=== PATIENT | female | born 1970 | race Caucasian/White ===

== ENCOUNTER → 2021-09-01 10:53 | Outpatient (CLI) | payer BC, SELFPAY ==
--- NOTE | ~2021-09-01 | XR_ITS ---
EXAMINATION: XR barium swallow DATE: 09/01/2021 12:02 INDICATION: Cough TECHNIQUE: The patient drank thick barium, gas-producing crystals, and thin barium. Fluoroscopic spot radiographs of the hypopharynx and esophagus were obtained. A total of 1452 images were recorded. Fl uoroscopy exposure time was 2.1 minutes. Total DAP was 2.39 mGycm^2 COMPARISON: None. FINDINGS: The pharynx is symmetric and without evidence of mass lesion or mucosal irregularity. The e sophagus is normal without mass or stricture. Esophageal motility is normal. There is no hiatal herni a. There was no gastroesophageal reflux with provocative maneuvers. IMPRESSION: 1. Normal esophagram. Reviewed, dictated and finalized at location B. IMPRESSION: 1. Normal esophagram.
== END ==
PROVIDERS: PCP Physician Assistant; Visit Provider Physician Assistant
DX: R05.9 Cough, unspecified (principal)
CPT/HCPCS: 74220

== ENCOUNTER 2022-10-19 00:43 | Day surgery (SDC) | payer BC, SELFPAY ==
[2022-10-07 13:05] VITALS: BMI 22.3
--- NOTE | 2022-10-09 14:15 | PM.HPGS ---
History of Present Illness History of Present Illness Consent: Risks, benefits, and alternatives have been discussed and questions answered. Patient agrees to proceed with procedure. Chief complaint: neoplasm screening Narrative: Astrid Groves is a 52 year old female Referred for colon cancer screening. Review of Systems Review of Systems: All systems reviewed & are unremarkable except as noted in HPI and below PMFSH Past Medical History Medical History (Updated 10/09/22 @ 14:15 by Tomasz Jones MD) Insomnia Family History Family History Grandparent Family history of mental disorder Family history of coronary artery disease Mother Hypertension Social History Social History Smoking status: Never smoker Alcohol intake: current Alcohol use details: socially Substance use: never Substance use type: does not use Living arrangements: with family Spiritual care concerns: No Meds Home Medications and Allergies Home Medications Medication Instructions Recorded Confirmed Type zolpidem 5 mg tablet (Ambien) 5 mg PO DAILY #30 tabs 03/24/21 10/19/22 Rx escitalopram oxalate 10 mg tablet See Rx Instructions .Route 08/01/21 10/19/22 Rx .COMPLEX #90 tabs Allergies Allergy/AdvReac Type Severity Reaction Status Date / Time clarithromycin Allergy Unknown Unknown Verified 10/19/22 07:51 Quinolones Allergy Unknown Unknown Verified 10/19/22 07:51 Exam Const: General: alert Orientation/consciousness: patient oriented x3 Resp: Auscultation: clear to auscultation bilaterally Cardio: Rhythm: regular rhythm GI: GI Palp: Yes Soft to palpation and No Tenderness to palpation present (GI) Neuro: General: patient oriented x3 Assessment and Plan Assessment and plan (1) Colon cancer screening: Code(s): Z12.11 - Encounter for screening for malignant neoplasm of colon Status: Acute Assessment and Plan: Colonoscopy with possible biopsy or polypectomy or cautery or injection of substances.
[2022-10-19 07:52] VITALS: BP 103/71; PULSE 87; RESP 16; TEMP 36.7; O2SAT 98
--- NOTE | 2022-10-19 07:54 | SUR.PREOP ---
NO Upreg needed per Dr Hernandez r/t pts h/o uterine ablation and no menstrual cycle for >10 years.
[2022-10-19] MEDS: LACTATED RINGERS 1,000 ML 150 ML IV CONT (07:55)
[2022-10-19 09:30] VITALS: BP 104/67; PULSE 69; RESP 14; O2SAT 100
[2022-10-19 09:40] VITALS: BP 110/68; PULSE 70; RESP 16; O2SAT 99
[2022-10-19 09:50] VITALS: BP 117/79; PULSE 65; RESP 20; O2SAT 100
== END 2022-10-19 09:57 | disposition home or self-care (01) ==
PROVIDERS: PCP Physician Assistant; Visit Provider Internal Medicine Gastroenterology
PROC: 0DJD8ZZ Inspection of Lower Intestinal Tract, Via Natural or Artificial Opening Endoscopic (ICD-10-PCS; CPT 45378; principal; 2022-10-19 09:15)
DX: Z12.11 Encounter for screening for malignant neoplasm of colon (principal)
CPT/HCPCS: 45378; J2704; J7120

== ENCOUNTER 2024-03-08 13:51 | Outpatient (CLI) | payer BC, SELFPAY ==
--- NOTE | ~2024-03-08 | XR_ITS ---
XR chest 2V 03/08/2024 14:10 Indication: Cough Procedure: 2 view chest Comparison: No prior studies for comparison. Findings: Heart size normal. No focal air space disease, pulmonary edema, pleural effusion or suspect ed pneumothorax. There is scoliosis. There are surgical clips in the right upper abdomen. Impression: 1: No acute cardiopulmonary disease. Reviewed, dictated and finalized at location A. Impression: 1: No acute cardiopulmonary disease.
== END 2024-03-08 13:52 ==
PROVIDERS: PCP Physician Assistant; Visit Provider Physician Assistant
DX: R05.9 Cough, unspecified (principal)
CPT/HCPCS: 71046